=== PATIENT | male | born 1985 | race Caucasian/White ===

== ENCOUNTER 2020-09-26 13:58 | Observation (INO) | payer BC ==
[2020-09-26] MEDS ORDERED: LIDOCAINE 2% VISCOUS SOLN 15 ML UDCUP PO ONE (14:58)
[2020-09-26] MEDS ORDERED: MAG HYDROX/AL HYDROX/SIMETH SUSP 30 ML UDCUP PO ONE (14:58)
[2020-09-26] MEDS ORDERED: METOCLOPRAMIDE HCL ORAL SOLN 10 MG/10 ML UDCUP PO ONE (14:58)
--- NOTE | 2020-09-26 15:02 | ER Document Report ---
ED Medical Screen (RME) - General Chief Complaint: Chest Pain Stated Complaint: CHEST TIGHTNESS Time Seen by Provider: 09/26/20 14:40 - HPI Notes: 09/26/20 15:00 34-year-old male presents to the emergency room today with complaints of left- sided chest pain that started at 9 AM, has been constant, radiating down his left arm and feels some shortness of breath. Reports he is having chest tightness, feels like he has a child sitting on his chest. Denies any radiation to his back or to his jaw. Denies any nausea or vomiting. Reports that mother had her first heart attack at 38, states dad did not have any cardiac issues. Non-smoker. Denies any previous history of cardiac issues. Denies any fevers or chills. Denies any trauma to chest. I have greeted and performed a rapid initial assessment of this patient. A co mprehensive ED assessment and evaluation of the patient, analysis of test results and completion of the medical decision making process will be conducted by additional ED providers. PHYSICAL EXAMINATION: GENERAL: Well-appearing, well-nourished and in no acute distress. HEAD: Atraumatic, normocephalic. EYES: Pupils equal round extraocular movements intact, conjunctiva are normal. NECK: Normal range of motion CV: s1, s2 regular LUNGS: No respiratory distress - Related Data Allergies/Adverse Reactions: No Known Allergies Allergy (Verified 09/26/20 14:40) Physical Exam - Vital signs Vitals: Temp Pulse Resp BP Pulse Ox 98.2 F 100 20 161/110 H 97 09/26/20 14:11 09/26/20 14:11 09/26/20 14:11 09/26/20 14:11 09/26/20 14:11 Course - Vital Signs Vital signs: Temp Pulse Resp BP Pulse Ox 98.2 F 100 20 161/110 H 97 09/26/20 14:11 09/26/20 14:11 09/26/20 14:11 09/26/20 14:11 09/26/20 14:11 - Laboratory Lab Results Review: Normal Lab Results Reviewed - NO LABS HAVE BEEN RESULTED
[2020-09-26 15:37] LABS: ABSOLUTE EOSINOPHILS # (AUTO) 0.2 10^3/uL (0.0-0.6); ABSOLUTE MONOCYTES (AUTO) 0.6 10^3/uL (0.1-1.4); ABSOLUTE NEUT (AUTO) 4.2 10^3/uL (1.7-8.2); BASOPHILS % (AUTO) 0.2 % (0-2); EOSINOPHILS % (AUTO) 2.8 % (0-6); HEMATOCRIT 47.8 % (37.9-51.0); HEMOGLOBIN 16.6 g/dL (13.5-17.0); LYMPHOCYTES % (AUTO) 37.3 % (13-45); MEAN CORPUSCULAR HGB CONC 34.7 g/dL (32.0-36.0); MEAN CORPUSCULAR VOLUME 86 fl (80-97); MONOCYTES % (AUTO) 7.5 % (3-13); PLATELET COUNT 164 10^3/uL (150-450); RED BLOOD COUNT 5.54 10^6/uL (4.35-5.55); RED CELL DISTRIBUTION WIDTH 13.2 % (11.5-14.0); SEGMENTED NEUTROPHILS % (AUTO) 52.2 % (42-78); TOTAL CELLS COUNTED % (AUTO) 100 %; WHITE BLOOD COUNT 8.1 10^3/uL (4.0-10.5)
--- NOTE | 2020-09-26 15:52 | RADIOLOGY REPORT (SQ) ---
EXAM DESCRIPTION: CHEST SINGLE VIEW IMAGES COMPLETED DATE/TIME: 09/26/2020 3:40 pm REASON FOR STUDY: chest pain COMPARISON: None. EXAM PARAMETERS: NUMBER OF VIEWS: One view. TECHNIQUE: Single frontal radiographic view of the chest acquired. RADIATION DOSE: NA LIMITATIONS: None. FINDINGS: LUNGS AND PLEURA: No opacities, masses or pneumothorax. No pleural effusion. MEDIASTINUM AND HILAR STRUCTURES: No masses. Contour normal. HEART AND VASCULAR STRUCTURES: Heart normal in size. Normal vasculature. BONES: No acute findings. HARDWARE: None in the chest. OTHER: No other significant finding. IMPRESSION: NO ACUTE RADIOGRAPHIC FINDING IN THE CHEST. TECHNICAL DOCUMENTATION: JOB ID: [id number] 2010 [employer]- All Rights Reserved Reading location - IP/workstation name: [email or web address]
[2020-09-26 15:56] LABS: ALBUMIN 4.8 g/dL (3.5-5.0); ALKALINE PHOSPHATASE 58 U/L (38-126); ANION GAP 10 (5-19); ASPARTATE AMINO TRANSFERASE 39 U/L (17-59); BILIRUBIN,DIRECT 0.2 mg/dL (0.0-0.4); BILIRUBIN,TOTAL 0.7 mg/dL (0.2-1.3); BLOOD UREA NITROGEN 16 mg/dL (7-20); CALCIUM 9.9 mg/dL (8.4-10.2); CARBON DIOXIDE 27 mmol/L (22-30); CHLORIDE 101 mmol/L (98-107); CREATINE KINASE 180 U/L (55-170); GLUCOSE 99 mg/dL (75-110); TOTAL PROTEIN 8.2 g/dL (6.3-8.2)
[2020-09-26 16:05] LABS: CREATINE KINASE MB 2.09 ng/mL (<4.55)
[2020-09-26 16:06] LABS: TROPONIN I < 0.012 ng/mL
--- NOTE | 2020-09-26 17:50 | ER Document Report ---
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 No associated nausea, vomiting or diaphoresis. No dyspnea. Episode lasted greater than 30 minutes. Not related to exertion. No history of thromboembolic disease. Patient is not diabetic. He does have a history of hypertension and hyperlipidemia. Mother developed cardiac disease in her mid to late 30s. No family history of thromboembolic disease. HEART Score: HISTORY 1 ECG 0 AGE 0 RISK FACTORS 3 TROPONIN 0 TOTAL: 4 If HEART score is = 3 AND both tronponin measurments are normal, the 30 day risk of a major adverse cardiac event (all-cause mortality, myocardia infarction or need for coronary revscularization) is < 1% (Sensitivity 100%, NPV 100%). Patient's only other medical history is treatment for psoriasis. - Related Data Allergies/Adverse Reactions: No Known Allergies Allergy (Verified 09/26/20 14:40) Past Medical History - General Information source: Patient - Social History Smoking Status: Never Smoker Frequency of alcohol use: Occasional Drug Abuse: None Family History: CAD - Past Medical History Cardiac Medical History: Reports: Hx Hypercholesterolemia, Hx Hypertension Endocrine Medical History: Denies: Hx Diabetes Mellitus Type 1, Hx Diabetes Mellitus Type 2 Surgical Hx: Negative Review of Systems - Review of Systems Notes: Constitutional: Negative for fever. HENT: Negative for sore throat. Eyes: Negative for visual changes. Cardiovascular: As per HPI. Respiratory: Negative for shortness of breath. Gastrointestinal: Negative for abdominal pain, vomiting or diarrhea. Genitourinary: Negative for dysuria. Musculoskeletal: Negative for back pain. Skin: Chronic psoriasis. Neurological: Negative for headaches, weakness or numbness. 10 point ROS negative except as marked above and in HPI. Physical Exam - Vital signs Vitals: Temp Pulse Resp BP Pulse Ox 98.2 F 100 20 161/110 H 97 09/26/20 14:11 09/26/20 14:11 09/26/20 14:11 09/26/20 14:11 09/26/20 14:11 - Notes Notes: GENERAL: Mildly obese male approximately stated age appearing in no acute distress. SKIN: Chronic psoriatic lesions of trunk and all 4 extremities. HEAD: Normocephalic atraumatic. EYES: PERRLA. EOMI. Conjunctivae and sclerae clear. EARS: CANALS AND TMS CLEAR. NOSE: CLEAR. MOUTH: Moist mucosa. Good dentition. No stridor or edema. No drooling. NECK: Supple. No masses or thyromegaly. No adenopathy. Carotids 2+ without bruits. No JVD. BACK: Symmetrical without tenderness. CHEST: Respirations unlabored. Breath sounds clear and symmetrical. HEART: Regular rhythm. No murmur gallop or rub. ABDOMEN: Highly obese. Soft nontender without masses, organomegaly or rebound. Bowel sounds normally active. No bruits. GENITALIA: Deferred. EXTREMITIES: No edema. No calf tenderness. Cap refill less than 1.5 seconds. Dorsalis pedis and posterior tibial pulses 3+ and symmetrical. NEUROLOGICAL: GCS 15. Alert and oriented x3. Normal gait. Fluent speech. Cranial nerves II through XII intact. Sensorimotor and cerebellar normal. Normal tone. PSYCHIATRIC: Appropriate affect. Course - Re-evaluation Re-evalutation: 09/26/20 20:26 Heart score is 4. 2 - EKGs. 2 - troponins 3 hours apart. Patient is inter mittently had some vague tightness in his chest while in the ED. I gave him some oral aspirin. I have also given him some transdermal nitroglycerin. Case discussed with speech therapist technician on-call Dr. Cain. We concur that patient is to be admitted for observation by the hospitalist. Patient has been accepted for telemetry admission by Dr. Sprague. - Vital Signs Vital signs: Temp Pulse Resp BP Pulse Ox 98.0 F 83 16 146/98 H 98 09/26/20 19:38 09/26/20 19:38 09/26/20 19:38 09/26/20 19:38 09/26/20 19:38 - Laboratory Results Result Diagrams: 09/26/20 15:18 09/26/20 15:18 Laboratory Results Interpreted: 09/26/20 15:18 ALT 94 H Creatine Kinase 180 H Critical Laboratory Results Reviewed: No Critical Results - Radiology Results Radiology Results Interpreted: 09/26/20 17:50 Chest X-Ray 09/26/20 14:59 IMPRESSION: NO ACUTE RADIOGRAPHIC FINDING IN THE CHEST. Critical Radiology Results Reviewed: No Critical Results - EKG Interpretation by Me Additional EKG results interpreted by me: 09/26/20 17:50 Twelve-lead EKG reviewed by me contemporaneously: 1406 hrs. Indication for study: Chest pain Rhythm: Normal sinus Rate: 96 Intervals: Normal intervals QRS axis: +[address]/T wave changes: None Comparison with prior tracing: None Interpretation: Normal tracing Discharge - Discharge Clinical Impression: Chest Pain Condition: Good Disposition: ADMITTED OBSERVATION Admitting Provider: [facility] Admitted: Telemetry Referrals: KRISTY HERNADEZ PA-C [Primary Care Provider] - Follow up as needed
--- NOTE | 2020-09-26 18:01 | EKG REPORT ---
SEVERITY:- NORMAL ECG - SINUS RHYTHM : Confirmed by: Lashell Solis 26-Sep-2020 18:00:54
--- NOTE | 2020-09-26 18:01 | EKG REPORT ---
SEVERITY:- ABNORMAL ECG - SINUS RHYTHM ABNRM R PROG, CONSIDER ASMI OR LEAD PLACEMENT : Confirmed by: Lashell Solis 26-Sep-2020 18:01:18
[2020-09-26] MEDS ORDERED: ASPIRIN 325 MG TABLET PO ONE (20:17)
[2020-09-26] MEDS ORDERED: NITROGLYCERIN 2% OINTMENT 1 GM PACKET TP ONE (20:18)
[2020-09-26] MEDS ORDERED: NITROGLYCERIN 0.4 MG/TAB 25 TAB/BOTTLE SL PRN (22:18)
--- NOTE | 2020-09-27 04:38 | PDOC H&P ---
History of Present Illness Admission Date/PCP: 09/26/20 20:33 KRISTY HERNADEZ PA-C Patient complains of: chest pain History of Present Illness: TYRONE ROSS is a 34 year old male Patient has no previous history of any cardiac problems. During the day shortly after noon he developed retrosternal chest pain without any physical exertion at the same time. The pain was quite intense and it was radiating to the left shoulder and left arm. He has never experienced anything similar. Eventually came to the emergency department. He was given nitroglycerin and the pain has completely resolved. He had no additional complaint. When I saw him he did not appear to be in any kind of distress. Past Medical History Cardiac Medical History: Reports: Hyperlipidema, Hypertension Pulmonary Medical History: Denies: None, Asthma, Bronchitis, Chronic Obstructive Pulmonary Disease (COPD), Intubation, Pneumonia, Respiratory Failure, Sleep Apnea, Tuberculosis, Other Neurological Medical History: Denies: None, Hemorrhagic CVA, Ischemic CVA, Migraine, Multiple Sclerosis, Seizures, Other Endocrine Medical History: Denies: None, Diabetes Mellitus Type 1, Diabetes Mellitus Type 2, Hyperthyroidism, Hypothyroidism, Obesity, Other Renal/ Medical History: Denies: Chronic Kidney Disease Malignancy Medical History: Reports: None GI Medical History: Reports: None Skin Medical History: Reports: Psoriasis Psychiatric Medical History: Denies: Depression Traumatic Medical History: Reports: None Hematology: Reports: None Infectious Medical History: Reports: None Past Surgical History Past Surgical History: Reports: None Social History Lives with: Family Smoking Status: Never Smoker Electronic Cigarette use?: No Frequency of Alcohol Use: Occasional Hx Recreational Drug Use: No Drugs: None Hx Prescription Drug Abuse: No Family History Family History: CAD Parental Family History Reviewed: Yes - Mother has coronary artery disease Children Family History Reviewed: No Sibling(s) Family History Reviewed.: No Medication/Allergy Home Medications: Losartan/Hydrochlorothiazide [Hyzaar 50-12.5 Tablet] 1 tab PO DAILY 09/26/20 Allergies/Adverse Reactions: No Known Allergies Allergy (Verified 09/26/20 14:40) Review of Systems All systems: reviewed and no additional remarkable complaints except as stated Cardiovascular: PRESENT: chest pain Integumentary: PRESENT: other - Psoriasis Physical Exam Vital Signs: Temp Pulse Resp BP Pulse Ox 97.5 F 93 17 135/88 H 95 09/26/20 22:07 09/26/20 22:07 09/26/20 22:07 09/26/20 22:07 09/26/20 22:07 Intake & Output 09/25/20 09/26/20 09/27/20 06:59 06:59 06:59 Intake Total 200 Balance 200 Weight 120.202 kg General appearance: PRESENT: no acute distress Head exam: PRESENT: atraumatic Eye exam: ABSENT: conjunctival injection, conjunctiva pink, conjunctiva pale, EOMI, nystagmus, periorbital swelling, PERRLA, scleral icterus, other Neck exam: ABSENT: carotid bruit, thyromegaly Respiratory exam: PRESENT: other - Lungs clear to auscultation Cardiovascular exam: PRESENT: other - Heart regular rate and rhythm, no murmur, no gallop Vascular exam: PRESENT: normal capillary refill GI/Abdominal exam: PRESENT: other - Abdomen soft nontender Extremities exam: PRESENT: full ROM. ABSENT: calf tenderness, pedal edema Musculoskeletal exam: PRESENT: ambulatory Neurological exam: PRESENT: alert, oriented to person, oriented to place, oriented to time, oriented to situation Skin exam: PRESENT: other - Psoriatic lesions Results Laboratory Results: 09/26/20 15:18 09/26/20 15:18 09/26/20 09/26/20 15:18 15:18 WBC 8.1 RBC 5.54 Hgb 16.6 Hct 47.8 MCV 86 MCH 30.0 MCHC 34.7 RDW 13.2 Plt Count 164 Seg Neutrophils % 52.2 Sodium 137.6 Potassium 4.0 Chloride 101 Carbon Dioxide 27 Anion Gap 10 BUN 16 Creatinine 0.97 Est GFR ( Amer) > 60 Glucose 99 Calcium 9.9 Total Bilirubin 0.7 AST 39 Alkaline Phosphatase 58 Total Protein 8.2 Albumin 4.8 09/26/20 09/26/20 09/26/20 15:18 15:18 17:55 Creatine Kinase 180 H CK-MB (CK-2) 2.09 Troponin I < 0.012 < 0.012 09/26/20 22:42 Creatine Kinase CK-MB (CK-2) Troponin I < 0.012 EKG Comments: Sinus rhythm, normal EKG Impressions: Chest X-Ray 09/26/20 14:59 IMPRESSION: NO ACUTE RADIOGRAPHIC FINDING IN THE CHEST. Assessment and Plan - Diagnosis (1) Chest pain Qualifiers: Chest pain type: precordial pain Qualified Code(s): R07.2 - Precordial pain Is this a current diagnosis for this admission?: Yes Plan: shelter monitor. Repeat cardiac enzymes. Fasting lipid panel. Cardiology consultation was requested. Continue daily aspirin 81 mg. (2) Hypertension Qualifiers: Hypertension type: essential hypertension Qualified Code(s): I10 - Essential (primary) hypertension Is this a current diagnosis for this admission?: Yes Plan: Continue losartan 50 mg daily. (3) Psoriasis Is this a current diagnosis for this admission?: Yes - Plan Summary Summary: Patient was placed in observation because of chest pain. No sign of ongoing cardiac ischemia. - Time Time Spent with patient: 25-34 minutes Medications reviewed and adjusted accordingly: Yes Anticipated Discharge Disposition: Home, Self Care Anticipated Discharge Timeframe: within 24 hours
[2020-09-27 05:49] LABS: ABSOLUTE EOSINOPHILS # (AUTO) 0.2 10^3/uL (0.0-0.6); ABSOLUTE LYMPHOCYTES (AUTO) 2.9 10^3/uL (0.5-4.7); ABSOLUTE MONOCYTES (AUTO) 0.7 10^3/uL (0.1-1.4); BASOPHILS % (AUTO) 0.4 % (0-2); EOSINOPHILS % (AUTO) 3.3 % (0-6); HEMATOCRIT 46.8 % (37.9-51.0); HEMOGLOBIN 16.4 g/dL (13.5-17.0); LYMPHOCYTES % (AUTO) 42.9 % (13-45); MEAN CORPUSCULAR HEMOGLOBIN 30.6 pg (27.0-33.4); MEAN CORPUSCULAR VOLUME 87 fl (80-97); MONOCYTES % (AUTO) 9.9 % (3-13); PLATELET COUNT 155 10^3/uL (150-450); RED BLOOD COUNT 5.36 10^6/uL (4.35-5.55); RED CELL DISTRIBUTION WIDTH 13.4 % (11.5-14.0); SEGMENTED NEUTROPHILS % (AUTO) 43.5 % (42-78); TOTAL CELLS COUNTED % (AUTO) 100 %; WHITE BLOOD COUNT 6.8 10^3/uL (4.0-10.5)
[2020-09-27 06:00] LABS: ALBUMIN 4.2 g/dL (3.5-5.0); ALKALINE PHOSPHATASE 51 U/L (38-126); ANION GAP 8 (5-19); ASPARTATE AMINO TRANSFERASE 40 U/L (17-59); BILIRUBIN,DIRECT 0.1 mg/dL (0.0-0.4); BILIRUBIN,TOTAL 0.8 mg/dL (0.2-1.3); BLOOD UREA NITROGEN 17 mg/dL (7-20); CALCIUM 9.3 mg/dL (8.4-10.2); CARBON DIOXIDE 26 mmol/L (22-30); CHLORIDE 103 mmol/L (98-107); CHOLESTEROL 195.51 mg/dL (0-200); GLUCOSE 108 mg/dL (75-110); POTASSIUM 4.1 mmol/L (3.6-5.0); TOTAL PROTEIN 7.3 g/dL (6.3-8.2); TRIGLYCERIDES 385 mg/dL (<150)
[2020-09-27 06:11] LABS: DIRECT LDL 119 mg/dL (<100)
[2020-09-27] MEDS ORDERED: LOSARTAN POTASSIUM 50 MG TABLET PO SCH (10:00)
[2020-09-27] MEDS ORDERED: ASPIRIN 81 MG TABLET, CHEWABLE PO SCH (10:00)
--- NOTE | 2020-09-27 10:34 | PDOC CONSULTATION ---
Consultation Consult Date: 09/27/20 Attending physician:: ARCHIE CANTRELL Provider Consulted: NAGI UMANA Consult reason:: Chest pain History of Present Illness Admission Date/PCP: 09/26/20 20:33 KRISTY HERNADEZ PA-C History of Present Illness: TYRONE ROSS is a 34 year old male, non-smoker with history of hypertension and psoriasis as well as family history of premature coronary artery disease in his mother who had PCI at age 38 years who is consulted to our service for evaluation of atypical chest pain. The patient had been in his usual state of health until yesterday while, at rest, developed chest discomfort that he described as a pressure that came in waves, diffusely localized to the upper chest, lasting 30 to 60 seconds at a time, with spontaneous resolution and recurrence every 30 minutes or so, with a feeling of tingling in his left shoulder and arm but not associated with shortness of breath, palpitations, diaphoresis, syncope or presyncope. The patient stated that the pain would improve with deep breathing and did not notice any triggers or aggravating factors. He used to work out at the gym regularly however has not done so since COVID-[address]. He had an uneventful night and denies recurrence of his index symptoms. His troponins were negative x3. His EKG has been free of ischemic changes. Physical exam on 09/27/2020: GENERAL: Mildly obese. Pleasant and conversational. Oriented x3 with normal mood. Not in acute distress. Well groomed and well developed. HEENT: Normocephalic, atraumatic. Pupils equal. Sclerae anicteric. Oropharynx moist. NECK: No JVD. No carotid bruits. LUNGS: Clear to auscultation bilaterally. Normal respiratory effort without the use of accessory muscles or intercostal retractions. CARDIOVASCULAR: Regular rate and rhythm, normal S1 and S2 without murmurs, rubs, or gallops. PMI not displaced. ABDOMEN: No masses or tenderness to palpation. No bruit. No splenomegaly or hepatomegaly. No abdominal aorta bruit noted. EXTREMITIES: 1+ pitting edema bilaterally, no cyanosis, no clubbing. +2 pulses femoral and pedal pulses bilaterally. SKIN: No lesions or rashes. MUSCULOSKELETAL: No chest tenderness to palpation. NEUROLOGIC: Nonfocal. No gross sensory or motor deficits bilateral upper or lower extremities. Past Medical History Cardiac Medical History: Reports: Hyperlipidema, Hypertension Pulmonary Medical History: Denies: None, Asthma, Bronchitis, Chronic Obstructive Pulmonary Disease (COPD), Intubation, Pneumonia, Respiratory Failure, Sleep Apnea, Tuberculosis, Other Neurological Medical History: Denies: None, Hemorrhagic CVA, Ischemic CVA, Migraine, Multiple Sclerosis, Seizures, Other Endocrine Medical History: Denies: None, Diabetes Mellitus Type 1, Diabetes Mellitus Type 2, Hyperthyroidism, Hypothyroidism, Obesity, Other Renal/ Medical History: Denies: Chronic Kidney Disease Malignancy Medical History: Reports: None GI Medical History: Reports: None Skin Medical History: Reports: Psoriasis Psychiatric Medical History: Denies: Depression Traumatic Medical History: Reports: None Hematology: Reports: None Infectious Medical History: Reports: None Past Surgical History Past Surgical History: Reports: None Social History Lives with: Family Smoking Status: Never Smoker Electronic Cigarette use?: No Frequency of Alcohol Use: Occasional Hx Recreational Drug Use: No Drugs: None Hx Prescription Drug Abuse: No Family History Family History: CAD Parental Family History Reviewed: Yes Children Family History Reviewed: Yes Sibling(s) Family History Reviewed.: Yes Medication/Allergy Home Medications: Losartan/Hydrochlorothiazide [Hyzaar 50-12.5 Tablet] 1 tab PO DAILY 09/26/20 Allergies/Adverse Reactions: No Known Allergies Allergy (Verified 09/26/20 14:40) Physical Exam Vital Signs: Temp Pulse Resp BP Pulse Ox 97.5 F 71 16 130/76 H 96 09/27/20 07:32 09/27/20 07:29 09/27/20 07:29 09/27/20 07:29 09/27/20 07:29 Intake & Output 09/26/20 09/27/20 09/28/20 06:59 06:59 06:59 Intake Total 460 Balance 460 Weight 120.2 kg Results Laboratory Results: 09/27/20 05:10 09/27/20 05:10 09/26/20 09/26/20 09/27/20 15:18 15:18 05:10 WBC 8.1 6.8 RBC 5.54 5.36 Hgb 16.6 16.4 Hct 47.8 46.8 MCV 86 87 MCH 30.0 30.6 MCHC 34.7 35.0 RDW 13.2 13.4 Plt Count 164 155 Seg Neutrophils % 52.2 43.5 Sodium 137.6 Potassium 4.0 Chloride 101 Carbon Dioxide 27 Anion Gap 10 BUN 16 Creatinine 0.97 Est GFR ( Amer) > 60 Glucose 99 Calcium 9.9 Total Bilirubin 0.7 AST 39 Alkaline Phosphatase 58 Total Protein 8.2 Albumin 4.8 Triglycerides Cholesterol LDL Cholesterol Direct VLDL Cholesterol HDL Cholesterol TSH 09/27/20 09/27/20 05:10 05:10 WBC RBC Hgb Hct MCV MCH MCHC RDW Plt Count Seg Neutrophils % Sodium 136.6 L Potassium 4.1 Chloride 103 Carbon Dioxide 26 Anion Gap 8 BUN 17 Creatinine 0.99 Est GFR ( Amer) > 60 Glucose 108 Calcium 9.3 Total Bilirubin 0.8 AST 40 Alkaline Phosphatase 51 Total Protein 7.3 Albumin 4.2 Triglycerides 385 H Cholesterol 195.51 LDL Cholesterol Direct 119 H VLDL Cholesterol 77.0 H HDL Cholesterol 26 L TSH 4.17 09/26/20 09/26/20 09/26/20 15:18 15:18 17:55 Creatine Kinase 180 H CK-MB (CK-2) 2.09 Troponin I < 0.012 < 0.012 09/26/20 09/27/20 22:42 05:10 Creatine Kinase CK-MB (CK-2) Troponin I < 0.012 < 0.012 Impressions: Chest X-Ray 09/26/20 14:59 IMPRESSION: NO ACUTE RADIOGRAPHIC FINDING IN THE CHEST. 09/27/20 05:10 09/27/20 05:10 MCV 87 fl (80-97) 09/27/20 05:10 MCH 30.6 pg (27.0-33.4) 09/27/20 05:10 MCHC 35.0 g/dL (32.0-36.0) 09/27/20 05:10 RDW 13.4 % (11.5-14.0) 09/27/20 05:10 Seg Neutrophils % 43.5 % (42-78) 09/27/20 05:10 Chloride 103 mmol/L (98-107) 09/27/20 05:10 Carbon Dioxide 26 mmol/L (22-30) 09/27/20 05:10 Anion Gap 8 (5-19) 09/27/20 05:10 Est GFR ( Amer) > 60 (>60) 09/27/20 05:10 Glucose 108 mg/dL (75-110) 09/27/20 05:10 Calcium 9.3 mg/dL (8.4-10.2) 09/27/20 05:10 Total Bilirubin 0.8 mg/dL (0.2-1.3) 09/27/20 05:10 AST 40 U/L (17-59) 09/27/20 05:10 Alkaline Phosphatase 51 U/L (38-126) 09/27/20 05:10 Total Protein 7.3 g/dL (6.3-8.2) 09/27/20 05:10 Albumin 4.2 g/dL (3.5-5.0) 09/27/20 05:10 Triglycerides 385 mg/dL (<150) H 09/27/20 05:10 Cholesterol 195.51 mg/dL (0-200) 09/27/20 05:10 LDL Cholesterol Direct 119 mg/dL (<100) H 09/27/20 05:10 VLDL Cholesterol 77.0 mg/dL (10-31) H 09/27/20 05:10 HDL Cholesterol 26 mg/dL (>40) L 09/27/20 05:10 TSH 4.17 uIU/mL (0.47-4.68) 09/27/20 05:10 09/26/20 09/26/20 09/26/20 15:18 15:18 17:55 Creatine Kinase 180 H CK-MB (CK-2) 2.09 Troponin I < 0.012 < 0.012 09/26/20 09/27/20 22:42 05:10 Creatine Kinase CK-MB (CK-2) Troponin I < 0.012 < 0.012 Current Medication List Generic Name Dose Route Start Last Admin Trade Name Freq PRN Reason Stop Dose Admin Aspirin 81 mg 09/27/20 10:00 09/27/20 09:35 Aspirin 81 Mg Tablet, Chewable PO 10/27/20 09:59 81 mg DAILY TERRI Administration Losartan Potassium 50 mg 09/27/20 10:00 09/27/20 09:35 Losartan Potassium 50 Mg Tablet PO 10/27/20 09:59 50 mg DAILY TERRI Administration Nitroglycerin 1 tab 09/26/20 22:18 Nitroglycerin 0.4 Mg/Tab 25 Tab/Bottle SL 10/26/20 22:17 Q5MP PRN FOR CHEST PAIN Discontinued Medications Generic Name Dose Route Start Last Admin Trade Name Freq PRN Reason Stop Dose Admin Al Hydrox/Mg Hydrox/Simethicone 30 ml 09/26/20 14:58 09/26/20 16:53 Mag Hydrox/Al Hydrox/Simeth Susp 30 Ml Udcup PO 09/26/20 14:59 30 ml NOW ONE Administration Aspirin 325 mg 09/26/20 20:17 09/26/20 20:34 Aspirin 325 Mg Tablet PO 09/26/20 20:18 325 mg NOW ONE Administration Lidocaine HCl 15 ml 09/26/20 14:58 09/26/20 16:53 Lidocaine 2% Viscous Soln 15 Ml Udcup PO 09/26/20 14:59 15 ml NOW ONE Administration Metoclopramide HCl 10 mg 09/26/20 14:58 09/26/20 16:54 Metoclopramide Hcl Oral Soln 10 Mg/10 Ml Udcup PO 09/26/20 14:59 10 mg NOW ONE Administration Nitroglycerin 1 gm 09/26/20 20:18 09/26/20 20:35 Nitroglycerin 2% Ointment 1 Gm Packet TP 09/26/20 20:19 1 gm NOW ONE Administration Assessment & Plan - Diagnosis (1) Atypical chest pain Is this a current diagnosis for this admission?: Yes Plan: 34-year-old male with cardiac risk factors of gender, hypertension and family history of premature coronary artery disease who presented to the hospital yesterday with very atypical chest pain in the setting of normal cardiac enzymes. His EKG has been free of ischemic changes and his chest x-ray was also normal. Unfortunately he did have breakfast this morning therefore we will plan for outpatient stress test given his cardiac risk factors. Recommendations: -Heart healthy diet. -Please order outpatient exercise stress test to be performed at [facility]. -Continue with primary prevention measures. (2) Hypertension Qualifiers: Hypertension type: essential hypertension Qualified Code(s): I10 - Essential (primary) hypertension Is this a current diagnosis for this admission?: Yes Plan: His blood pressure is essentially at goal. Recommendations: -We will defer further management to primary care physician as well as hospitalist team.
--- NOTE | 2020-09-27 12:57 | PDOC DISCHARGE SUMMARY ---
Impression - Admit/DC Date/PCP Admission Date/Primary Care Provider: 09/26/20 20:33 KRISTY HERNADEZ PA-C Discharge Date: 09/27/20 - Discharge Diagnosis (1) Atypical chest pain Is this a current diagnosis for this admission?: Yes (2) Hypertension Is this a current diagnosis for this admission?: Yes - Assessment Summary: Patient was placed in observation because of chest pain. No sign of ongoing cardiac ischemia. - Additional Information Discharge Diet: Cardiac Discharge Activity: Activity As Tolerated Referrals: KRISTY HERNADEZ PA-C [Primary Care Provider] - Follow up as needed NAGI UMANA MD [ACTIVE PROVISIONAL STAFF] - (Follow up for stress test and further reevaluation) Prescriptions: Rosuvastatin Calcium [Ezallor Sprinkle] 10 mg PO QHS #30 [email or web address] Home Medications: Losartan/Hydrochlorothiazide [Hyzaar 50-12.5 Tablet] 1 tab PO DAILY 09/26/20 Aspirin [Aspirin 81 mg Chewable Tablet] 81 mg PO DAILY tab.chew 09/27/20 Rosuvastatin Calcium [Ezallor Sprinkle] 10 mg PO QHS #30 cap.[email or web address] 09/27/20 History of Present Illiness History of Present Illness: TYRONE ROSS is a 34 year old male Patient was admitted early on today with complaints of chest pain that was felt to be atypical. He was seen by the enamel sprayer. He has had serial troponins done which were negative. Hospital Course Hospital Course: Patient was kept for further monitoring. He is currently chest pain-free. He has been seen by enamel sprayer this morning and the plan is for further outpatient work-up. Troponins were negative x3 and EKG has been free of ischemic changes. At this time with no further symptoms and hemodynamic stability patient is being discharged home for outpatient follow-up including stress test given his cardiac risk factors Physical Exam Vital Signs: Temp Pulse Resp BP Pulse Ox 97.5 F 71 16 130/76 H 96 09/27/20 07:32 09/27/20 07:29 09/27/20 07:29 09/27/20 07:29 09/27/20 07:29 Intake & Output 09/26/20 09/27/20 09/28/20 06:59 06:59 06:59 Intake Total 460 354 Balance 460 354 Weight 120.2 kg General appearance: PRESENT: no acute distress, well-developed, well-nourished Head exam: PRESENT: atraumatic, normocephalic Eye exam: PRESENT: conjunctiva pink, EOMI, PERRLA. ABSENT: scleral icterus Ear exam: PRESENT: normal external ear exam Mouth exam: PRESENT: moist, tongue midline Neck exam: ABSENT: carotid bruit, JVD, lymphadenopathy, thyromegaly Respiratory exam: PRESENT: clear to auscultation rupinder. ABSENT: rales, rhonchi, wheezes Cardiovascular exam: PRESENT: RRR, +S1, +S2. ABSENT: diastolic murmur, rubs, systolic murmur Pulses: PRESENT: normal dorsalis pedis pul Vascular exam: PRESENT: normal capillary refill GI/Abdominal exam: PRESENT: normal bowel sounds, soft. ABSENT: distended, guarding, mass, organolmegaly, rebound, tenderness Rectal exam: PRESENT: deferred Extremities exam: PRESENT: full ROM. ABSENT: calf tenderness, clubbing, pedal edema Neurological exam: PRESENT: alert, awake, oriented to person, oriented to place, oriented to time, oriented to situation, CN II-XII grossly intact. ABSENT: motor sensory deficit Psychiatric exam: PRESENT: appropriate affect, normal mood. ABSENT: homicidal ideation, suicidal ideation Skin exam: PRESENT: dry, intact, warm. ABSENT: cyanosis, rash Results Laboratory Results: WBC 6.8 10^3/uL (4.0-10.5) 09/27/20 05:10 RBC 5.36 10^6/uL (4.35-5.55) 09/27/20 05:10 Hgb 16.4 g/dL (13.5-17.0) 09/27/20 05:10 Hct 46.8 % (37.9-51.0) 09/27/20 05:10 MCV 87 fl (80-97) 09/27/20 05:10 MCH 30.6 pg (27.0-33.4) 09/27/20 05:10 MCHC 35.0 g/dL (32.0-36.0) 09/27/20 05:10 RDW 13.4 % (11.5-14.0) 09/27/20 05:10 Plt Count 155 10^3/uL (150-450) 09/27/20 05:10 Lymph % (Auto) 42.9 % (13-45) 09/27/20 05:10 [place] % (Auto) 9.9 % (3-13) 09/27/20 05:10 Eos % (Auto) 3.3 % (0-6) 09/27/20 05:10 Baso % (Auto) 0.4 % (0-2) 09/27/20 05:10 Absolute Neuts (auto) 3.0 10^3/uL (1.7-8.2) 09/27/20 05:10 Absolute Lymphs (auto) 2.9 10^3/uL (0.5-4.7) 09/27/20 05:10 Absolute Monos (auto) 0.7 10^3/uL (0.1-1.4) 09/27/20 05:10 Absolute Eos (auto) 0.2 10^3/uL (0.0-0.6) 09/27/20 05:10 Absolute Basos (auto) 0.0 10^3/uL (0.0-0.2) 09/27/20 05:10 Seg Neutrophils % 43.5 % (42-78) 09/27/20 05:10 D-Dimer < 0.27 ug/mL (0.00-0.50) 09/26/20 15:18 Sodium 136.6 mmol/L (137-145) L 09/27/20 05:10 Potassium 4.1 mmol/L (3.6-5.0) 09/27/20 05:10 Chloride 103 mmol/L (98-107) 09/27/20 05:10 Carbon Dioxide 26 mmol/L (22-30) 09/27/20 05:10 Anion Gap 8 (5-19) 09/27/20 05:10 BUN 17 mg/dL (7-20) 09/27/20 05:10 Creatinine 0.99 mg/dL (0.52-1.25) 09/27/20 05:10 Est GFR ( Amer) > 60 (>60) 09/27/20 05:10 Est GFR (MDRD) Non-Af > 60 (>60) 09/27/20 05:10 Glucose 108 mg/dL (75-110) 09/27/20 05:10 Hemoglobin A1c % 5.2 % (4.7-6.0) 09/27/20 05:10 Calcium 9.3 mg/dL (8.4-10.2) 09/27/20 05:10 Total Bilirubin 0.8 mg/dL (0.2-1.3) 09/27/20 05:10 Direct Bilirubin 0.1 mg/dL (0.0-0.4) 09/27/20 05:10 Neonat Total Bilirubin Not Reportable 09/27/20 05:10 Neonat Direct Bilirubin Not Reportable 09/27/20 05:10 Neonat Indirect Bili Not Reportable 09/27/20 05:10 AST 40 U/L (17-59) 09/27/20 05:10 ALT 92 U/L (<50) H 09/27/20 05:10 Alkaline Phosphatase 51 U/L (38-126) 09/27/20 05:10 Creatine Kinase 180 U/L (55-170) H 09/26/20 15:18 CK-MB (CK-2) 2.09 ng/mL (<4.55) 09/26/20 15:18 Troponin I Cancelled 09/27/20 10:46 Total Protein 7.3 g/dL (6.3-8.2) 09/27/20 05:10 Albumin 4.2 g/dL (3.5-5.0) 09/27/20 05:10 Triglycerides 385 mg/dL (<150) H 09/27/20 05:10 Cholesterol 195.51 mg/dL (0-200) 09/27/20 05:10 LDL Cholesterol Direct 119 mg/dL (<100) H 09/27/20 05:10 VLDL Cholesterol 77.0 mg/dL (10-31) H 09/27/20 05:10 HDL Cholesterol 26 mg/dL (>40) L 09/27/20 05:10 TSH 4.17 uIU/mL (0.47-4.68) 09/27/20 05:10 09/26/20 09/26/20 09/26/20 15:18 17:55 22:42 CK-MB (CK-2) 2.09 Troponin I < 0.012 < 0.012 < 0.012 09/27/20 09/27/20 05:10 10:46 CK-MB (CK-2) Troponin I < 0.012 Cancelled Impressions: Chest X-Ray 09/26/20 14:59 IMPRESSION: NO ACUTE RADIOGRAPHIC FINDING IN THE CHEST. Plan Health Concerns: Outpatient follow-up with cardiology for stress test and further risk stratification as clinically indicated Time Spent: Less than 30 Minutes Stroke Is this a Stroke Patient?: No Acute Heart Failure Is this a Heart Failure Patient?: No
[2020-09-27 13:05] VITALS: BP 135/88
--- NOTE | 2020-09-27 19:06 | EKG REPORT ---
SEVERITY:- ABNORMAL ECG - SINUS RHYTHM ABNRM R PROG, CONSIDER ASMI OR LEAD PLACEMENT : Confirmed by: Lashell Solis 27-Sep-2020 19:06:33
== END 2020-09-27 13:34 | disposition home or self-care (01) ==
LOC: ER 13:58 → EH 20:33 → 4S 22:09
PROVIDERS: ADMIT Internal Medicine; ATTEND Internal Medicine
DX: R07.89 Other chest pain (principal); I10 Essential (primary) hypertension; Z79.82 Long term (current) use of aspirin; Z79.899 Other long term (current) drug therapy; L40.9 Psoriasis, unspecified; I25.10 Atherosclerotic heart disease of native coronary artery without angina pectoris; R20.0 Anesthesia of skin; E78.5 Hyperlipidemia, unspecified
CPT/HCPCS: 36415; 71045; 80053; 80061; 82550; 82553; 83036; 84443; 84484; 85025; 85379; 93005; 93010; 99285; G0378; J3490